=== PATIENT | female | born 1965 | race Caucasian/White ===

== ENCOUNTER → 2017-06-10 | Outpatient (REF) | payer OTHER ==
[~2017-06-10] MED LIST: ACE3 PO; ASCO-599 PO; ERGO400T9 PO; IRON COMPLEX POF; NO ROUTINE MEDS; ONCOPLEX PO; PER PO; PRO25 PO; [UNRECOGNIZED DRUG - OTHER] PO; [UNRECOGNIZED DRUG - OTHER] PO; [UNRECOGNIZED DRUG - OTHER] PO; [UNRECOGNIZED DRUG - OTHER] PO; [UNRECOGNIZED DRUG - REMARK] PO
[2017-06-10 11:47] LABS: PLATELET COUNT, AUTOMATED 282 K/uL (150-450)
== END ==
PROVIDERS: ATTEND Nurse Practitioner Family
DX: R07.9 Chest pain, unspecified (principal)
CPT/HCPCS: 82040; 82247; 82310; 82374; 82435; 82465; 82565; 82947; 83718; 84075; 84132; 84155; 84295; 84443; 84450; 84460; 84478; 84484; 84520; 85025; 85379

== ENCOUNTER → 2017-10-13 | Outpatient (CLI) | payer OTHER ==
--- NOTE | 2017-10-13 17:13 | RADIOLOGY IMAGING REPORT ---
FACILITY: [facility] - [place], [place] PATIENT NAME: ADE ESPARZA : [id number] MR: [id number] V: [id number] EXAM DATE: ORDERING PHYSICIAN: RUT NOBLE TECHNOLOGIST: Karen Tenorio PROCEDURE:BILATERAL DIGITAL SCREENING MAMMOGRAM WITH CAD ASSISTED INTERPRETATION & 3D TOMOSYNTHESIS COMPARISON:Prior mammograms 06/20/12, 06/15/12. INDICATIONS:SCREENING FINDINGS: Moderately dense fibroglandular tissue is seen throughout the breasts. The parenchymal pattern has remained stable allowing for difference in mammographic technique & patient positioning. There is no evidence of malignant appearing mass, malignant appearing calcifications or other secondary sign of malignancy in either breast. DIAGNOSTIC CATEGORY 2--BENIGN FINDING. RECOMMENDATIONS: ROUTINE MAMMOGRAM AND CLINICAL EVALUATION. IMPRESSION: BIRADS 2: Benign finding. No significant abnormality is seen. Dictated by: Anay Herrera M.D. on 10/13/2017 at 15:17 Transcribed by: SELINA on 10/13/2017 at 15:34 Approved by: Anay Herrera M.D. on 10/13/2017 at 17:12 [facility]
== END ==
LOC: MAMO 02:10
PROVIDERS: ATTEND Nurse Practitioner
DX: Z12.31 Encounter for screening mammogram for malignant neoplasm of breast (principal)
CPT/HCPCS: 77063; 77067

== ENCOUNTER → 2018-06-22 | Outpatient (CLI) | payer OTHER ==
--- NOTE | 2018-06-22 17:30 | RADIOLOGY IMAGING REPORT ---
FACILITY: [facility] PATIENT NAME: Italia Leos : 1965 MR: [id number] V: [id number] EXAM DATE: ORDERING PHYSICIAN: IAVN MAYER TECHNOLOGIST: Location: [facility] Patient: Italia Leos : 1965 Visit/Account:[id number] Date of Sevice: 06/22/2018 THYROID HISTORY: Bilateral thyroid nodules, previous left-sided thyroid biopsy COMPARISON: December 08, 2016 FINDINGS: SIZE: Right lobe: 5.2 x 1.8 x 1.3 cm Left lobe: 5.1 x 2.1 x 2.6 cm Isthmus: 3 mm PARENCHYMA: Homogeneous. NODULES: Right lobe: * There multiple small solid nodules seen throughout the right lobe most measuring less than 1 cm. There is a 1.5 x 0.9 x 1 cm well-circumscribed hypoechoic nodule in the posterior right lobe appears unchanged in size when compared to the prior study. Measurements of this nodule were not performed o n the previous exam Left lobe: * In the mid left lobe there is a 3 x 1.9 x 2.6 cm partially cystic hypoechoic nodule that appears r elatively unchanged in size. This appear this has apparently been biopsied previously. In the infer ior left lobe there is a 1 x 0.9 x 1.1 cm partially cystic nodule is relatively unchanged Isthmus: * None discrete. VASCULARITY: Within normal limits. ADDITIONAL FINDINGS: None. IMPRESSION: There is old bilateral thyroid nodules present. These appear relatively unchanged in size when lynne red to the prior examination. REFERENCE: 2015 [place] [employer] Management Guidelines for Adult Patients with Thyroid Nodules and D ifferentiated Thyroid Cancer: The [place] [employer] Guidelines Task Force on Thyroid Nodul es and Differentiated Thyroid Cancer. SONOGRAPHIC PATTERNS: * Benign: Purely cystic nodules (no solid component); estimated risk of malignancy <1 percent; no bi opsy recommended. * Very Low Suspicion: Spongiform or partially cystic nodules without any of the sonographic features described in low, intermediate, or high suspicion patterns; estimated risk of malignancy <3 percent; consider FNA at > 2 cm (Observation without FNA is also a reasonable option). * Low Suspicion: Isoechoic or hyperechoic solid nodule, or partially cystic nodule with eccentric so lid areas, without microcalcification, irregular margin or ETE (extra-thyroidal extension), or taller than wide shape; estimated risk of malignancy 5-10 percent; recommend FNA at >1.5 cm. * Intermediate Suspicion: Hypoechoic solid nodule with smooth margins without microcalcifications, E TE (extra-thyroidal extension), or taller than wide shape; estimated risk of malignancy 10-20 percent ; recommend FNA at > 1 cm. * High Suspicion: Solid hypoechoic nodule or solid hypoechoic component of a partially cystic nodule with one or more of the following features: irregular margins (infiltrative, microlobulated), microc alcifications, taller than wide shape, rim calcifications with small extrusive soft tissue component, evidence of ETE (extra-thyroidal extension); estimated risk of malignancy >70-90 percent; recommend FNA at > 1 cm. NOTES: * Although a sonographically suspicious subcentimeter thyroid nodule without evidence of extrathyroi molly extension or sonographically suspicious lymph nodes may be observed with close sonographic follow -up rather than pursuing immediate FNA, patient age and preference may modify decision-making. A > 50% interval increase in nodule volume and/or development of new suspicious sonographic features are felt to be a valid reasons for potential re-aspiration of a nodule previously shown to have benig n FNA cytology. Report Dictated By: Anay Herrera MD at 06/22/2018 5:22 PM Report E-Signed By: Anay Herrera MD at 06/22/2018 5:27 PM WSN:[email or web address]
== END ==
LOC: US 07:07
PROVIDERS: ATTEND Internal Medicine Endocrinology, Diabetes & Metabolism
DX: E04.2 Nontoxic multinodular goiter (principal)
CPT/HCPCS: 36415; 76536; 84443

== ENCOUNTER → 2018-07-12 | Outpatient (CLI) | payer OTHER | LOC: LAB 16:04 | PROVIDERS: ATTEND Internal Medicine Endocrinology, Diabetes & Metabolism | DX: E04.2 Nontoxic multinodular goiter (principal) | CPT/HCPCS: 36415; 84439; 84443; 84481 ==